=== PATIENT | male | born 1945 | race Caucasian/White ===

== ENCOUNTER 2022-01-17 06:49 | Day surgery (SDC) | payer MEDICARE ==
[2022-01-14 13:08] LABS: BASOPHILS % (AUTO) 2.1 % (0.0-5.0); EOSINOPHILS % (AUTO) 8.8 % (0.0-8.0); HEMATOCRIT 42.6 % (42-54); MEAN CORPUSCULAR HEMOGLOBIN 32.9 pg (27.0-33.0); MEAN CORPUSCULAR HGB CONC 32.4 g/dL (32.0-36.0); MEAN CORPUSCULAR VOLUME 101.7 fL (79-99); MONOCYTES % (AUTO) 18.2 % (3.0-13.0); NEUTROPHILS % (AUTO) 51.7 % (40.0-77.0); PLATELET COUNT (AUTO) 95 K/uL (130-400); RED BLOOD CELL COUNT(AUTO) 4.19 MIL/uL (4.50-6.20); RED CELL DISTRIBUTION WIDTH 13.2 % (11.0-15.5); WHITE BLOOD COUNT (AUTO) 5.3 K/uL (4.8-10.8)
[2022-01-14 13:20] LABS: INR 0.96 (0.85-1.15); PROTHROMBIN TIME 10.5 SEC (9.6-11.6)
[2022-01-14 13:21] LABS: APPEARANCE,URINE Clear (CLEAR); BILIRUBIN,URINE Negative (NEGATIVE); COLOR,URINE Yellow (YELLOW); GLUCOSE, URINE (UA) 500 mg/dL (NEGATIVE); KETONES,URINE Negative (NEGATIVE); LEUKOCYTE ESTERASE ,URINE Small (NEGATIVE); NITRATE,URINE Negative (NEGATIVE); OCCULT BLOOD,URINE Moderate (NEGATIVE); PH,URINE 5.5 (5.0-8.0); PROTEIN,URINE Negative (NEGATIVE); UROBILINOGEN,URINE 0.2 mg/dL (0.2-1.0)
[2022-01-14 13:22] LABS: PARTIAL THROMBOPLASTIN TIME 25.7 SEC (26.3-35.5); POTASSIUM 4.2 mmol/L (3.5-5.1)
[2022-01-14 13:23] LABS: CREATININE 1.2 mg/dL (0.5-1.5)
[2022-01-14 13:38] LABS: BACTERIA,URINE Rare /HPF (None Seen); SQUAMOUS EPITHELIAL CELL,UR Rare /HPF (0-2); WBC,URINE 0-1 /HPF (0-1)
[2022-01-16 09:12] VITALS: BP 178/88
[~2022-01-17] VITALS: Ht 177.8 cm; Wt 95.7 kg
[2022-01-17] VITALS (14 sets, daily range): BP systolic 129–153; BP diastolic 69–92
[~2022-01-17 06:49] MED LIST: ACYC400T20 PO; APIX2.5T PO; ATOR40TA69 PO; AZEL137S11 NS; CEFTRIAXONE 1G VIAL IVP SCH; FLUT16H NASAL; GENTAMICIN 80 MG/NS 100 ML PB 100 ML IV SCH; LENA5CAP PO; LORA10TA7 PO; METO25TA3 PO; OMEP20CA12 PO
[2022-01-17] MEDS ORDERED: IOHEXOL-350 50ML VIAL IV ONE (07:24)
[2022-01-17] MEDS ORDERED: MIDAZOLAM HCL 1 MG/ML 2ML VIAL ONE (07:37)
[2022-01-17] MEDS ORDERED: ROCURONIUM 10MG/1ML SYR 10 MG/ML ML ONE (07:37)
[2022-01-17] MEDS ORDERED: LIDOCAINE PF 100MG/5ML (2%) SYRINGE 5ML ONE (07:37)
[2022-01-17] MEDS ORDERED: LACTATED RINGERS 1000ML 1,000 ML IV ONE (07:37)
[2022-01-17] MEDS ORDERED: FENTANYL CITRATE PF 50 MCG/1 ML 2ML VIAL ONE (07:38)
[2022-01-17] MEDS ORDERED: PROPOFOL 10 MG/ML 20ML VIAL IV ONE (07:38)
[2022-01-17] MEDS ORDERED: ONDANSETRON 4MG INJ ONE (08:53)
[2022-01-17] MEDS ORDERED: EPHEDRINE SULFATE 50 MG/ML AMPULE ONE (08:57)
[2022-01-17] MEDS ORDERED: DEXAMETHASONE SOD PHOSPHATE 10MG/ML 1ML VIAL ONE (09:13)
[2022-01-17] MEDS ORDERED: GLYCOPYRROLATE 1 MG/5 ML SYRINGE ONE (09:46)
[2022-01-17] MEDS ORDERED: NEOSTIGMINE 5MG/5ML SYR IV ONE (09:46)
[2022-01-17] MEDS ORDERED: MEPERIDINE-PF 25 MG/ML SYG ONE (09:47)
== END 2022-01-17 11:30 | disposition home or self-care (01) ==
LOC: DAH 06:49
PROVIDERS: ATTEND Urology
DX: N20.2 Calculus of kidney with calculus of ureter (principal); I10 Essential (primary) hypertension; Z79.01 Long term (current) use of anticoagulants; Z79.899 Other long term (current) drug therapy; Z20.822 Contact with and (suspected) exposure to COVID-19
CPT/HCPCS: 36415 ×2; 52356; 71045; 74018; 80048; 81001; 82360; 85025; 85610; 85730; 87088; 87635; 93005; A4213; A4215; A4221; A4222; A4223; A4354; A4358; A4649; A4663; A6260; C1758; C1769; C2617; C9803; J0696; J1100; J2001; J2175; J2250; J2405; J2704; J2710; J3010; J3490 ×2; J7030; J7120; J1580; Q9967